=== PATIENT | female | born 1960 | race American Indian/Alaskan Native ===

== ENCOUNTER 2019-04-10 08:51 | Inpatient (IN) | payer MEDICAID ==
[2019-04-10] MEDS ORDERED: SODIUM CHLORIDE 0.9% 1000 ML 1,000 ML IV ONE (09:14)
--- NOTE | 2019-04-10 09:23 | Emergency Department Report ---
<SUKHDEEPELYSIA - Last Filed: 04/10/19 16:15> ED GI Bleed HPI - General Chief complaint: Abdominal Pain Stated complaint: BLOOD IN STOOL Time Seen by Provider: 04/10/19 09:14 - Related Data Home Medications Medication Instructions Recorded Confirmed Last Taken Acyclovir 800 mg PO BID 04/04/19 04/10/19 04/09/19 Banophen Anti-Itch 25 mg PO DAILY 04/04/19 04/10/19 04/09/19 Combivent Respimat 1 spray INHALATION Q6H 04/04/19 04/04/19 04/09/19 Famotidine 40 mg PO Q12H 04/04/19 04/04/19 04/09/19 Fluticasone Propionate 2 spray INHALATION DAILY 04/04/19 04/04/19 04/09/19 Levothyroxine 25 mcg PO DAILY 04/04/19 04/10/19 04/09/19 Loratadine 10 mg PO DAILY 04/04/19 04/10/19 04/09/19 Losartan Potassium 50 mg PO Q12H 04/04/19 04/10/19 04/09/19 Montelukast 10 mg PO QPM 04/04/19 04/10/19 04/09/19 allopurinoL 300 mg PO DAILY 04/04/19 04/04/19 04/09/19 Previous Rx's Medication Instructions Recorded Last Taken Type Apixaban [Eliquis] 10 mg PO Q12HR #60 tablet 04/07/19 04/09/19 Rx Pantoprazole [Protonix TAB] 40 mg PO QDAY #30 tablet 04/07/19 04/09/19 Rx Allergies Allergy/AdvReac Type Severity Reaction Status Date / Time No Known Allergies Allergy Verified 04/04/19 01:28 ED Past Medical Hx - Medications Home Medications: Home Medications Medication Instructions Recorded Confirmed Last Taken Type Acyclovir 800 mg PO BID 04/04/19 04/10/19 04/09/19 History Banophen Anti-Itch 25 mg PO DAILY 04/04/19 04/10/19 04/09/19 History Combivent Respimat 1 spray INHALATION Q6H 04/04/19 04/04/19 04/09/19 History Famotidine 40 mg PO Q12H 04/04/19 04/04/19 04/09/19 History Fluticasone Propionate 2 spray INHALATION DAILY 04/04/19 04/04/19 04/09/19 History Levothyroxine 25 mcg PO DAILY 04/04/19 04/10/19 04/09/19 History Loratadine 10 mg PO DAILY 04/04/19 04/10/19 04/09/19 History Losartan Potassium 50 mg PO Q12H 04/04/19 04/10/19 04/09/19 History Montelukast 10 mg PO QPM 04/04/19 04/10/19 04/09/19 History allopurinoL 300 mg PO DAILY 04/04/19 04/04/19 04/09/19 History Apixaban [Eliquis] 10 mg PO Q12HR #60 tablet 04/07/19 04/10/19 04/09/19 Rx Pantoprazole [Protonix TAB] 40 mg PO QDAY #30 tablet 04/07/19 04/10/19 04/09/19 Rx ED Medical Decision Making - Lab Data Result diagrams: 04/10/19 09:58 04/10/19 09:58 - Medical Decision Making I reviewed the results of CT abdomen and pelvis: No CTA evidence for active GI bleed, moderate pericardial effusion, extensive vascular calcification non- aneurysmal abdominal aorta region, no acute inflammatory intra-abdominal process ED Disposition Clinical Impression: Abdominal pain, GI (gastrointestinal hemorrhage), Acute anemia Disposition: DC-[id number] OP ADMIT IP TO THIS HOSP Is pt being admited?: Yes Does the pt Need Aspirin: No Condition: Stable <ANNY CAMARA - Last Filed: 04/11/19 09:19> ED GI Bleed HPI - General Source: patient, EMS Mode of arrival: Stretcher Limitations: No Limitations - History of Present Illness Initial comments: Patient is 58 years old female with remote history of neck cancer. Patient presented to the ER complaining of rectal bleeding started this morning. Patient was admitted to the hospital and discharged last week for right upper extremity DVT and also anemia for which patient received blood transfusion. Patient was seen by Dr. Julian Mcghee, gastroenterology and patient had a colonoscopy with no significant finding. Patient also found to have significant lymphadenopathy that is occluding the subclavian, internal jugular. Patient was discharged on Elliquis. complaint: gross hematochezia -: This morning Location: LLQ Radiation: none Quality: cramping Consistency: intermittent Context: history of GI bleed ED Review of Systems ROS: Stated complaint: BLOOD IN STOOL Other details as noted in HPI Comment: All other systems reviewed and negative Constitutional: denies: chills, fever Respiratory: denies: cough, shortness of breath Cardiovascular: denies: chest pain Gastrointestinal: abdominal pain, hematochezia. denies: nausea, vomiting, diarrhea, constipation, hematemesis, melena Genitourinary: denies: urgency, dysuria Musculoskeletal: denies: back pain Neurological: denies: headache, weakness, numbness, paresthesias, confusion, abnormal gait ED Past Medical Hx - Past Medical History Previous Medical History?: Yes Hx Hypertension: Yes Hx CVA: Yes Hx Diabetes: Yes Hx Asthma: Yes Additional medical history: Gout - Surgical History Past Surgical History?: Yes Additional Surgical History: Oral Surgery, hx of feeding tube - Social History Smoking Status: Current Some Day Smoker ED Physical Exam - General Limitations: No Limitations General appearance: alert, in no apparent distress - Head Head exam: Present: atraumatic, normocephalic, normal inspection - Eye Eye exam: Present: normal appearance - ENT ENT exam: Present: normal exam, normal orophraynx, mucous membranes moist - Neck Neck exam: Present: normal inspection, full ROM. Absent: tenderness, meningismus, lymphadenopathy, thyromegaly - Respiratory Respiratory exam: Present: normal lung sounds bilaterally - Cardiovascular Cardiovascular Exam: Present: regular rate, normal rhythm, normal heart sounds - GI/Abdominal GI/Abdominal exam: Present: soft, normal bowel sounds. Absent: distended, tenderness, guarding, rebound, rigid, organomegaly, mass, bruit, pulsatile mass, hernia - Rectal Rectal exam: Present: normal inspection, normal rectal tone, heme (+) stool. Absent: hemorrhoids, mass, tenderness - Extremities Exam Extremities exam: Present: normal inspection, full ROM, normal capillary refill. Absent: tenderness, pedal edema, calf tenderness - Back Exam Back exam: Present: normal inspection, full ROM. Absent: CVA tenderness (R), CVA tenderness (L) - Neurological Exam Neurological exam: Present: alert, oriented X3, CN II-XII intact, normal gait, reflexes normal - Skin Skin exam: Present: warm, intact, normal color ED Course Vital Signs 04/10/19 04/10/19 04/10/19 09:03 09:12 09:20 Temperature 97.7 F Pulse Rate 118 H 120 H Respiratory 23 23 Rate Blood Pressure 106/53 100/55 100/55 Blood Pressure [Right] O2 Sat by Pulse 96 Oximetry 04/10/19 04/10/19 04/10/19 10:00 10:40 11:00 Temperature Pulse Rate 109 H 108 H 108 H Respiratory 25 H 27 H 25 H Rate Blood Pressure 100/55 105/48 109/52 Blood Pressure [Right] O2 Sat by Pulse Oximetry 04/10/19 04/10/19 04/10/19 11:40 12:00 12:20 Temperature Pulse Rate 109 H 107 H 110 H Respiratory 24 22 21 Rate Blood Pressure 151/74 134/65 102/65 Blood Pressure [Right] O2 Sat by Pulse Oximetry 04/10/19 04/10/19 04/10/19 12:40 13:00 13:15 Temperature 98.8 F Pulse Rate 109 H 108 H 109 H Respiratory 22 18 23 Rate Blood Pressure 133/55 114/67 112/68 Blood Pressure [Right] O2 Sat by Pulse 94 Oximetry 04/10/19 04/10/19 04/10/19 13:30 13:32 13:45 Temperature 98.7 F 98.6 F Pulse Rate 108 H 110 H Respiratory 26 H 29 H Rate Blood Pressure 121/73 136/80 Blood Pressure [Right] O2 Sat by Pulse 99 99 100 Oximetry 04/10/19 04/10/19 04/10/19 14:00 15:35 16:00 Temperature 98.7 F Pulse Rate 106 H 103 H 102 H Respiratory 21 15 20 Rate Blood Pressure 118/67 136/80 163/76 Blood Pressure [Right] O2 Sat by Pulse 97 Oximetry 04/10/19 04/10/19 04/10/19 16:30 16:40 17:00 Temperature Pulse Rate 100 H 102 H 100 H Respiratory 21 23 16 Rate Blood Pressure 155/80 155/80 165/84 Blood Pressure [Right] O2 Sat by Pulse Oximetry 04/10/19 04/10/19 04/10/19 17:20 17:40 18:00 Temperature Pulse Rate 101 H 102 H 100 H Respiratory 24 22 19 Rate Blood Pressure 170/78 153/75 153/71 Blood Pressure [Right] O2 Sat by Pulse Oximetry 04/10/19 04/10/19 04/10/19 18:20 18:25 18:26 Temperature 97.9 F Pulse Rate 100 H 99 H 100 H Respiratory 24 16 17 Rate Blood Pressure 152/79 152/79 152/79 Blood Pressure [Right] O2 Sat by Pulse 100 Oximetry 04/10/19 04/10/19 04/10/19 18:40 19:00 19:10 Temperature 98.6 F 98.6 F Pulse Rate 102 H 101 H 96 H Respiratory 21 17 21 Rate Blood Pressure 130/65 128/70 149/76 Blood Pressure [Right] O2 Sat by Pulse 100 100 Oximetry 04/10/19 04/10/19 04/10/19 19:20 19:40 20:00 Temperature 98.6 F Pulse Rate 100 H 98 H 95 H Respiratory 21 19 12 Rate Blood Pressure 150/88 149/76 160/84 Blood Pressure [Right] O2 Sat by Pulse 100 Oximetry 04/10/19 04/10/19 04/10/19 20:10 20:20 20:40 Temperature 98.6 F Pulse Rate 96 H 96 H 96 H Respiratory 16 21 18 Rate Blood Pressure 149/83 160/84 161/83 Blood Pressure [Right] O2 Sat by Pulse 100 Oximetry 04/10/19 04/10/19 04/10/19 21:00 21:20 21:40 Temperature Pulse Rate 100 H 102 H 101 H Respiratory 27 H 25 H 25 H Rate Blood Pressure 167/80 178/82 149/73 Blood Pressure [Right] O2 Sat by Pulse Oximetry 04/10/19 04/10/19 04/10/19 22:00 22:20 22:40 Temperature Pulse Rate 100 H 97 H 95 H Respiratory 27 H 18 19 Rate Blood Pressure 159/75 146/75 152/77 Blood Pressure [Right] O2 Sat by Pulse Oximetry 04/10/19 04/10/19 04/10/19 22:45 23:00 23:20 Temperature Pulse Rate 96 H 94 H 95 H Respiratory 27 H 22 Rate Blood Pressure 149/83 171/82 158/78 Blood Pressure [Right] O2 Sat by Pulse Oximetry 04/10/19 04/11/19 04/11/19 23:40 00:00 00:20 Temperature Pulse Rate 93 H 88 89 Respiratory 21 18 18 Rate Blood Pressure 155/76 145/62 145/62 Blood Pressure [Right] O2 Sat by Pulse Oximetry 04/11/19 04/11/19 04/11/19 00:40 01:00 01:20 Temperature Pulse Rate 89 91 H 87 Respiratory 22 23 18 Rate Blood Pressure 145/62 164/79 164/79 Blood Pressure [Right] O2 Sat by Pulse Oximetry 04/11/19 04/11/19 04/11/19 01:40 02:00 02:20 Temperature Pulse Rate 85 88 83 Respiratory 20 20 26 H Rate Blood Pressure 164/79 143/64 143/64 Blood Pressure [Right] O2 Sat by Pulse Oximetry 04/11/19 04/11/19 04/11/19 02:40 03:00 03:20 Temperature Pulse Rate 91 H 88 86 Respiratory 23 21 20 Rate Blood Pressure 143/64 148/74 148/74 Blood Pressure [Right] O2 Sat by Pulse Oximetry 04/11/19 04/11/19 04/11/19 03:40 04:00 04:20 Temperature Pulse Rate 88 86 87 Respiratory 21 19 15 Rate Blood Pressure 148/74 136/68 136/68 Blood Pressure [Right] O2 Sat by Pulse Oximetry 04/11/19 04/11/19 04/11/19 04:40 05:00 05:20 Temperature Pulse Rate 85 85 83 Respiratory 18 23 23 Rate Blood Pressure 136/68 126/75 126/75 Blood Pressure [Right] O2 Sat by Pulse Oximetry 04/11/19 04/11/19 04/11/19 05:40 06:00 06:20 Temperature Pulse Rate 84 86 88 Respiratory 22 14 18 Rate Blood Pressure 126/75 136/70 136/70 Blood Pressure [Right] O2 Sat by Pulse Oximetry 04/11/19 07:42 Temperature 98.2 F Pulse Rate 87 Respiratory 22 Rate Blood Pressure Blood Pressure 162/80 [Right] O2 Sat by Pulse 100 Oximetry ED Medical Decision Making - Lab Data Result diagrams: 04/11/19 04:14 04/11/19 04:14 - Radiology Data Radiology results: report reviewed - Medical Decision Making Patient is 58 years old female with remote history of neck cancer. Patient presented to the ER complaining of rectal bleeding started this morning. Patient was admitted to the hospital and discharged last week for right upper extremity DVT and also anemia for which patient received blood transfusion. Patient was seen by Dr. Julian Mcghee, gastroenterology and patient had a colonoscopy with no significant finding. Patient also found to have significant lymphadenopathy that is occluding the subclavian, internal jugular. Patient was discharged on Elliquis. Patient found to have a hemoglobin of 6.9. Patient transfused one units of PRBC. Patient also found to have a white blood cells of 21,[address] abdomen and pelvis is pending. I discussed the patient with Dr. Schroeder he agreed to admit the patient to medical service for further management. Critical Care Time: Yes Critical care time in (mins) excluding proc time.: 30 Critical care attestation.: If time is entered above; I have spent that time in minutes in the direct care of this critically ill patient, excluding procedure time. ED Disposition Is pt being admited?: Yes
[2019-04-10 10:13] LABS: Hematocrit 21.3 % (30.3-42.9); Hemoglobin 6.9 gm/dl (10.1-14.3); Mean Corpuscular HGB Conc 32 % (30-34); Mean Corpuscular Volume 79 fl (79-97); Platelet Count 286 K/mm3 (140-440); Red Blood Count 2.69 M/mm3 (3.65-5.03)
[2019-04-10 10:14] LABS: Red Cell Distribution Width 26.6 % (13.2-15.2)
[2019-04-10 10:21] LABS: INR 1.53 (0.87-1.13)
[2019-04-10 10:22] LABS: Partial Thromboplastin Time 34.9 Sec. (24.2-36.6)
[2019-04-10 10:23] LABS: Alanine Aminotransferase 9 units/L (7-56); Albumin 2.9 g/dL (3.9-5); BUN/Creatinine Ratio 34; Blood Urea Nitrogen 31 mg/dL (7-17); Calcium 8.5 mg/dL (8.4-10.2); Hemolysis Index 4
[2019-04-10 10:28] LABS: Bilirubin,Direct < 0.2 mg/dL (0-0.2)
[2019-04-10] MEDS ORDERED: PIPERACILLIN/TAZOBACTAM 3.375 3.375 GM/50 ML BAG IV ONE (10:39)
[2019-04-10 10:48] LABS: Anisocytosis 2+; Band Neutrophils # (Manual) 1.1 K/mm3; Eosinophils % (Manual) 0 % (0.0-4.3); Hypochromasia 1+; Platelet Estimate Consistent w Auto; Total Cells Counted 100
[2019-04-10] MEDS ORDERED: SODIUM CHLORIDE 0.9% 500 ML 500 ML IV ONE (11:07)
--- NOTE | 2019-04-10 15:01 | History and Physical Report ---
History of Present Illness Chief complaint: I have blood in my stool History of present illness: 58 yo AA woman with tobacco dependency, hypothyroidism, hypertension, head and neck cancer s/p removal/chemo/xrt presents to ED for evaluation. Patient states that she has experienced multiple episodes of rectal bleeding over the past 1 day with large volume bloody bowel movement with blood clots this morning. EMS was notified and upon arrival the patient was found to be in distress and subsequently transported to [facility] for further care and evaluation. Patient seen and evaluated in the emergency department. Lab and imaging studies reviewed. Patient found to be Hemoccult positive with lower GI bleed. CBC revealed a hemoglobin of 6.9. Patient also found to have concomitant evidence of sepsis, symptomatic anemia, and severe malnutrition. Patient admitted to [facility] for medical stabilization due to high risk for decompensation. Patient initiated on [place] packed red blood cell transfusion, and PPI therapy.. Patient also initiated on sepsis protocol and treated with IV antibiotic therapy and IV fluid resuscitation therapy. CT abdomen and pelvis with contrast is pending at time of admission. Patient denies fever, chills, chest pain, palpitations, productive cough, ingestion of food/water from new or different sources. Prior admission on 04/04/2019 reviewed. All listed medication reconciled at time of ad mission. GI team consulted in ED. Past History Past Medical History: cancer, hypertension, hypothyroidism, other (See HPI) Past Surgical History: Other (Head and neck surgery) Social history: single Family history: hypertension Medications and Allergies Allergies Allergy/AdvReac Type Severity Reaction Status Date / Time No Known Allergies Allergy Verified 04/04/19 01:28 Home Medications Medication Instructions Recorded Confirmed Last Taken Type Acyclovir 800 mg PO BID 04/04/19 04/10/19 04/09/19 History Banophen Anti-Itch 25 mg PO DAILY 04/04/19 04/10/19 04/09/19 History Combivent Respimat 1 spray INHALATION Q6H 04/04/19 04/04/19 04/09/19 History Famotidine 40 mg PO Q12H 04/04/19 04/04/19 04/09/19 History Fluticasone Propionate 2 spray INHALATION DAILY 04/04/19 04/04/19 04/09/19 History Levothyroxine 25 mcg PO DAILY 04/04/19 04/10/19 04/09/19 History Loratadine 10 mg PO DAILY 04/04/19 04/10/19 04/09/19 History Losartan Potassium 50 mg PO Q12H 04/04/19 04/10/19 04/09/19 History Montelukast 10 mg PO QPM 04/04/19 04/10/19 04/09/19 History allopurinoL 300 mg PO DAILY 04/04/19 04/04/19 04/09/19 History Apixaban [Eliquis] 10 mg PO Q12HR #60 tablet 04/07/19 04/10/19 04/09/19 Rx Pantoprazole [Protonix TAB] 40 mg PO QDAY #30 tablet 04/07/19 04/10/19 04/09/19 Rx Review of Systems Constitutional: no weight loss, no weight gain, no fever, no chills Ears, nose, mouth and throat: no ear pain, no tinnitis, no nose pain, no nasal discharge Breasts: no change in shape, no swelling, no mass Cardiovascular: no chest pain, no palpitations, no rapid/irregular heart beat, no edema, no syncope Respiratory: no cough, no excessive sputum, no hemoptysis, no dyspnea on exertion Gastrointestinal: BRBPR, no abdominal pain, no nausea, no vomiting, no change in bowel habits, no loss of appetite, no heartburn Genitourinary Female: no pelvic pain, no flank pain, no dysuria, no urinary frequency, no urgency Rectal: bleeding, no pain, no incontinence Musculoskeletal: no neck stiffness, no neck pain, no low back pain, no leg numbness/tingling, no redness of joints Integumentary: no rash, no pruritis, no redness, no sores, no wounds Neurological: no transient paralysis, no weakness, no tingling, no seizures, no tremors, no lack of coordination Psychiatric: no memory loss, no change in sleep habits, no insomnia, no hypersomnia Endocrine: no cold intolerance, no heat intolerance, no polyphagia, no polyuria, no nocturia, no excessive sweating, no flushing Hematologic/Lymphatic: no easy bruising, no easy bleeding, no lymphedema Allergic/Immunologic: no persistent infections, no anaphylaxis Exam - Constitutional Vitals: Temp Pulse Resp BP Pulse Ox 98.7 F 108 H 19 118/67 97 04/10/19 14:00 04/10/19 14:00 04/10/19 14:00 04/10/19 14:00 04/10/19 14:00 General appearance: Present: mild distress, cachectic - EENT Eyes: Present: PERRL (Conjunctival pallor) ENT: hearing intact, clear oral mucosa - Neck Neck: Present: supple, normal ROM - Respiratory Respiratory effort: normal Respiratory: bilateral: CTA - Cardiovascular Heart Sounds: Present: S1 & S2. Absent: rub, click - Extremities Extremities: pulses symmetrical, No edema Peripheral Pulses: within normal limits - Abdominal General gastrointestinal: Present: soft, non-tender, non-distended, normal bowel sounds Female genitourinary: Present: normal - Integumentary Integumentary: Present: clear, warm, dry - Musculoskeletal Musculoskeletal: generalized weakness - Psychiatric Psychiatric: appropriate mood/affect, intact judgment & insight - Neurologic Neurologic: CNII-XII intact, moves all extremities Results - Labs CBC & Chem 7: 04/10/19 09:58 04/10/19 09:58 Labs: Abnormal lab results 04/10/19 04/10/19 04/10/19 Range/Units 09:58 09:58 09:58 WBC 21.8 H (4.5-11.0) K/mm3 RBC 2.69 L (3.65-5.03) M/mm3 Hgb 6.9 L (10.1-14.3) gm/dl Hct 21.3 L (30.3-42.9) % MCH 26 L (28-32) pg RDW 26.6 H (13.2-15.2) % Seg Neuts % (Manual) 90.0 H (40.0-70.0) % Lymphocytes % (Manual) 1.0 L (13.4-35.0) % Seg Neutrophils # Man 19.6 H (1.8-7.7) K/mm3 Lymphocytes # (Manual) 0.2 L (1.2-5.4) K/mm3 Basophils # (Manual) 0.2 H (0.0-0.1) K/mm3 PT 18.6 H (12.2-14.9) Sec. INR 1.53 H (0.87-1.13) Sodium 134 L (137-145) mmol/L Chloride 96.5 L (98-107) mmol/L BUN 31 H (7-17) mg/dL Albumin 2.9 L (3.9-5) g/dL Crossmatch 04/10/19 Range/Units 09:58 WBC (4.5-11.0) K/mm3 RBC (3.65-5.03) M/mm3 Hgb (10.1-14.3) gm/dl Hct (30.3-42.9) % MCH (28-32) pg RDW (13.2-15.2) % Seg Neuts % (Manual) (40.0-70.0) % Lymphocytes % (Manual) (13.4-35.0) % Seg Neutrophils # Man (1.8-7.7) K/mm3 Lymphocytes # (Manual) (1.2-5.4) K/mm3 Basophils # (Manual) (0.0-0.1) K/mm3 PT (12.2-14.9) Sec. INR (0.87-1.13) Sodium (137-145) mmol/L Chloride (98-107) mmol/L BUN (7-17) mg/dL Albumin (3.9-5) g/dL Crossmatch See Detail Assessment and Plan - Patient Problems (1) Sepsis Current Visit: Yes Status: Acute Plan to address problem: Sepsis protocol: CBC, CMP, chest x-ray, urinalysis, serial lactic acid level, IV antibiotic therapy, IV fluid resuscitation therapy, maintain mean arterial pressure greater than 65, monitor urine output every shift. (2) GI (gastrointestinal hemorrhage) Current Visit: Yes Status: Acute Plan to address problem: GI bleed protocol: CBC, PRBC transfusion, GI consulted, repeat CBC in a.m. Repeat blood for transfusion if patient drops hemoglobin by 2 or more grams. (3) Severe malnutrition Current Visit: Yes Status: Acute Plan to address problem: Encourage increased protein intake, dietary supplementation as tolerated. (4) Acute anemia Current Visit: Yes Status: Acute (5) Hyponatremia Current Visit: Yes Status: Acute Plan to address problem: IV fluid resuscitation therapy, BMP now, repeat BMP in a.m. (6) DVT prophylaxis Current Visit: Yes Status: Acute Plan to address problem: SCD to bilateral lower extremities while in bed, hold anticoagulation for now due to GI bleed.
[2019-04-10] MEDS ORDERED: SODIUM CHLORIDE 0.9% 500 ML 500 ML IV SCH (15:02)
[2019-04-10] MEDS ORDERED: SODIUM CHLORIDE 0.9% 1000 ML IV SOLN IV ONE (15:03)
[2019-04-10] MEDS ORDERED: ALBUTEROL 2.5 MG/3 ML NEBU IH PRN (15:10)
--- NOTE | 2019-04-10 15:13 | Cat Scan Report ---
CT ABDOMEN AND PELVIS WITH CONTRAST INDICATION: abdominal pain. TECHNIQUE: Axial CT images were obtained through the abdomen and pelvis after 100 cc Omnipaque [address] scans at this location are performed using CT dose reduction for ALARA by means of automated exposure control. COMPARISON: None available. FINDINGS: LOWER CHEST: 1.8 cm pericardial effusion along the posterior dependent aspect of the pericardial sac. LIVER: No significant abnormality. GALLBLADDER: No significant abnormality. BILE DUCTS: No significant abnormality. PANCREAS: No significant abnormality. SPLEEN: No significant abnormality. ADRENALS: No significant abnormality. RIGHT KIDNEY and URETER: No significant abnormality. LEFT KIDNEY and URETER: No significant abnormality. STOMACH and SMALL BOWEL: No significant abnormality. COLON: No significant abnormality. APPENDIX: No significant abnormality. PERITONEUM: No free fluid. No free air. No fluid collection. LYMPH NODES: No significant adenopathy. AORTA and ARTERIES: Extensive vascular calcifications nonaneurysmal abdominal aorta area and IVC and VEINS: No significant abnormality. URINARY BLADDER: No significant abnormality. REPRODUCTIVE ORGANS: No significant abnormality. ADDITIONAL FINDINGS: None. SKELETAL SYSTEM: No significant abnormality. IMPRESSION: 1. No CTA evidence for active GI bleed. 2. Moderate pericardial effusion Signer Name: Jamal Mcpherson MD Signed: 04/10/2019 3:08 PM Workstation Name: [id number]
[2019-04-10] MEDS ORDERED: NON-FORMULARY EACH (Losartan Potassium 50 MG) PO SCH (15:15)
[2019-04-10] MEDS ORDERED: FAMOTIDINE 40 MG PO SCH (15:15)
[2019-04-10] MEDS ORDERED: FAMOTIDINE 20 MG TAB ONE (15:52)
[2019-04-10] MEDS ORDERED: LOSARTAN 50 MG TAB ONE ×2 (15:52→22:39)
[2019-04-10] MEDS ORDERED: PANTOPRAZOLE 20 MG TAB PO ONE ×2 (15:56→22:38)
[2019-04-10] MEDS ORDERED: metroNIDAZOLE/NS 500 MG/100 ML 500 MG/100 ML BAG IV ONE (16:11)
[2019-04-10] MEDS: metroNIDAZOLE/NS 500 MG/100 ML 500 MG/100 ML BAG IV SCH (16:30)
[2019-04-10 16:53] LABS: Bacteria,Urine 1+ /HPF (Negative); Bilirubin,Urine NEG (Negative); Blood,Urine LG (Negative); Color,Urine Yellow (Yellow); Mucus,Urine FEW /HPF; Protein,Urine <15 mg/dL mg/dL (Negative); Urobilinogen,Urine < 2.0 mg/dL (<2.0)
[2019-04-10] MEDS ORDERED: NON-FORMULARY EACH (Montelukast 10 MG) PO SCH (18:00)
[2019-04-10] MEDS ORDERED: ACYCLOVIR 800 MG PO SCH (22:00)
[2019-04-10] MEDS: PANTOPRAZOLE 40 MG INJ IV SCH ×2 (22:45→23:06)
[2019-04-10] MEDS: MONTELUKAST 10 MG TAB PO SCH (22:45)
[2019-04-10] MEDS: LOSARTAN 50 MG TAB PO SCH (22:45)
[2019-04-10] MEDS: ACYCLOVIR 800 MG TAB PO SCH (22:45)
[2019-04-10] MEDS ORDERED: MORPHINE 4 MG/1 ML INJ IV ONE (22:54)
[2019-04-10] MEDS ORDERED: MORPHINE 2 MG/1 ML INJ ONE (23:20)
[2019-04-11] MEDS ORDERED: PANTOPRAZOLE 40 MG TAB PO ONE ×3 (01:00→22:56)
[2019-04-11] MEDS: metroNIDAZOLE/NS 500 MG/100 ML 500 MG/100 ML BAG IV SCH ×4 (01:30→15:51)
[2019-04-11 05:11] LABS: Hematocrit 29.4 % (30.3-42.9); Hemoglobin 10.1 gm/dl (10.1-14.3); Mean Corpuscular HGB Conc 34 % (30-34); Mean Corpuscular Volume 83 fl (79-97); Platelet Count 258 K/mm3 (140-440); Red Blood Count 3.53 M/mm3 (3.65-5.03)
[2019-04-11 05:23] LABS: Red Cell Distribution Width 21.7 % (13.2-15.2)
[2019-04-11 05:35] LABS: Alanine Aminotransferase 8 units/L (7-56); Albumin 2.7 g/dL (3.9-5); BUN/Creatinine Ratio 22; Blood Urea Nitrogen 13 mg/dL (7-17); Calcium 8.3 mg/dL (8.4-10.2); Hemolysis Index 1
[2019-04-11] MEDS ORDERED: metroNIDAZOLE/NS 500 MG/100 ML 500 MG/100 ML BAG IV ONE ×3 (06:06→15:43)
[2019-04-11] MEDS: LEVOTHYROXINE 25 MCG TAB PO SCH (06:26)
[2019-04-11 06:52] LABS: Anisocytosis 1+; Basophils % (Manual) 0 % (0.0-1.8); Eosinophils % (Manual) 0 % (0.0-4.3); Hypochromasia 1+; Platelet Estimate Consistent w Auto; Total Cells Counted 100
--- NOTE | 2019-04-11 09:54 | Gastroenterology Consultation ---
History of Present Illness - Reason for Consult Consult date: 04/11/19 GI bleed Requesting physician: ANNIE ALEXIS - History of Present Illness Patient is a 58 y/o female with PMH of HTN, hypothyroidism, tobacco dependency, and remote head/neck cancer (s/p removal/chemo/xrt/PEG w/ removal) on whom GI has been consulted for GI bleed. She is previously known to our service from a consult last week for evaluation of anemia due to need for anticoagulation for RUE DVT. 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 She was discharged home on 04/07/19 on Eliquis and now presents to ED with c/o rectal bleeding that began yesterday with maroon colored blood. This morning patient was resting on stretcher w/o acute distress (HD stable). Reports no further BMs or signs of bleeding overnight or this am. Denies abd pain, N/V, or hematemesis. CTA upon admission negative for active bleeding. Past History Past Medical History: other (See HPI) Past Surgical History: Other (bilateral head, neck cancer removal 2011 with chemo/xrt, tubal ligation, s/p PEG and removal) Social history: single, smoking. denies: alcohol abuse Family history: hypertension, other (an Aunt of cancer, grandmother with possible hx of colon CA, sister has DM, cva, no DVT) Medications and Allergies Allergies Allergy/AdvReac Type Severity Reaction Status Date / Time No Known Allergies Allergy Verified 04/04/19 01:28 Home Medications Medication Instructions Recorded Confirmed Last Taken Type Acyclovir 800 mg PO BID 04/04/19 04/10/19 04/09/19 History Banophen Anti-Itch 25 mg PO DAILY 04/04/19 04/10/19 04/09/19 History Combivent Respimat 1 spray INHALATION Q6H 04/04/19 04/04/19 04/09/19 History Famotidine 40 mg PO Q12H 04/04/19 04/04/19 04/09/19 History Fluticasone Propionate 2 spray INHALATION DAILY 04/04/19 04/04/19 04/09/19 History Levothyroxine 25 mcg PO DAILY 04/04/19 04/10/19 04/09/19 History Loratadine 10 mg PO DAILY 04/04/19 04/10/19 04/09/19 History Losartan Potassium 50 mg PO Q12H 04/04/19 04/10/19 04/09/19 History Montelukast 10 mg PO QPM 04/04/19 04/10/19 04/09/19 History allopurinoL 300 mg PO DAILY 04/04/19 04/04/19 04/09/19 History Apixaban [Eliquis] 10 mg PO Q12HR #60 tablet 04/07/19 04/10/19 04/09/19 Rx Pantoprazole [Protonix TAB] 40 mg PO QDAY #30 tablet 04/07/19 04/10/19 04/09/19 Rx Active Meds: Active Medications Acyclovir (Zovirax) 800 mg PO Q12HR [facility] Last Admin: 04/10/19 22:45 Dose: 800 mg Documented by: Albuterol (Proventil) 2.5 mg IH Q3HRT PRN PRN Reason: Shortness Of Breath Allopurinol (Zyloprim) 300 mg PO QDAY [facility] Cetirizine HCl (Cetirizine) 10 mg PO DAILY [facility] Diphenhydramine HCl (Benadryl) 25 mg PO QDAY [facility] Sodium Chloride (Nacl 0.9% 500 Ml) 500 mls @ 0 mls/hr IV ONCE [facility] Levofloxacin/Dextrose (Levaquin 750mg/150ml) 750 mg in 150 mls @ 100 mls/hr IV Q24H [facility]; Protocol Last Admin: 04/10/19 18:04 Dose: 100 mls/hr Documented by: Metronidazole (Flagyl 500 Mg/100 Ml) 500 mg in 100 mls @ 100 mls/hr IV Q8H [facility]; Protocol Last Admin: 04/11/19 08:30 Dose: 100 mls/hr Documented by: Potassium Chloride (Kcl 10meq/100ml) 10 meq in 100 mls @ 100 mls/hr IV Q1H [facility] Stop: 04/11/19 11:59 Levothyroxine Sodium (Synthroid) 25 mcg PO DAILY@0600 [facility] Last Admin: 04/11/19 06:26 Dose: 25 mcg Documented by: Losartan Potassium (Cozaar) 50 mg PO BID [facility] Last Admin: 04/10/19 22:45 Dose: 50 mg Documented by: Montelukast Sodium (Singulair) 10 mg PO QHS [facility] Last Admin: 04/10/19 22:45 Dose: 10 mg Documented by: Pantoprazole Sodium (Protonix) 40 mg IV BID [facility] Last Admin: 04/10/19 23:06 Dose: Not Given Documented by: Sodium Chloride (Sodium Chloride Flush Syringe 10 Ml) 10 ml IV BID [facility] Last Admin: 04/10/19 22:44 Dose: 10 ml Documented by: Sodium Chloride (Sodium Chloride Flush Syringe 10 Ml) 10 ml IV PRN PRN PRN Reason: LINE FLUSH medications reviewed/updated as required Review of Systems - Review of Systems All systems: negative Gastrointestinal: other (rectal bleeding (maroon)), no abdominal pain, no nausea, no vomiting Exam - Constitutional Vital Signs: Temp Pulse Resp BP Pulse Ox 98.2 F 87 22 162/80 100 04/11/19 07:42 04/11/19 07:42 04/11/19 07:42 04/11/19 07:42 04/11/19 07:42 General appearance: no acute distress, other (thin appearing) - EENT Eyes: PERRL, EOM intact ENT: hearing intact - Respiratory Respiratory effort: normal Respiratory: bilateral: diminished - Cardiovascular Rhythm: regular - Gastrointestinal General gastrointestinal: Present: soft, non-tender, non-distended, normal bowel sounds - Integumentary Integumentary: Present: warm, dry - Neurologic Neurological: alert and oriented x3 - Labs CBC & Chem 7: 04/11/19 04:14 04/11/19 04:14 Lab Results: Laboratory Results - last 24 hr 04/10/19 04/10/19 04/10/19 09:58 09:58 09:58 WBC 21.8 H RBC 2.69 L Hgb 6.9 L Hct 21.3 L MCV 79 MCH 26 L MCHC 32 RDW 26.6 H Plt Count 286 Add Manual Diff Complete Total Counted 100 Seg Neuts % (Manual) 90.0 H Band Neutrophils % 5.0 Lymphocytes % (Manual) 1.0 L Reactive Lymphs % (Man) 0 Monocytes % (Manual) 3.0 Eosinophils % (Manual) 0 Basophils % (Manual) 1.0 Metamyelocytes % 0 Myelocytes % 0 Promyelocytes % 0 Blast Cells % 0 Nucleated RBC % Not Reportable Seg Neutrophils # Man 19.6 H Band Neutrophils # 1.1 Lymphocytes # (Manual) 0.2 L Abs React Lymphs (Man) 0.0 Monocytes # (Manual) 0.7 Eosinophils # (Manual) 0.0 Basophils # (Manual) 0.2 H Metamyelocytes # 0.0 Myelocytes # 0.0 Promyelocytes # 0.0 Blast Cells # 0.0 WBC Morphology Not Reportable Hypersegmented Neuts Not Reportable Hyposegmented Neuts Not Reportable Hypogranular Neuts Not Reportable Smudge Cells Not Reportable Toxic Granulation Not Reportable Toxic Vacuolation Not Reportable Dohle Bodies Not Reportable Pelger-Huet Anomaly Not Reportable Deangelo Rods Not Reportable Platelet Estimate Consistent w auto Clumped Platelets Not Reportable Plt Clumps, EDTA Not Reportable Large Platelets Not Reportable Giant Platelets Not Reportable Platelet Satelliting Not Reportable Plt Morphology Comment Not Reportable RBC Morphology Not Reportable Dimorphic RBCs Not Reportable Polychromasia Not Reportable Hypochromasia 1+ Poikilocytosis Not Reportable Anisocytosis 2+ Microcytosis 1+ Macrocytosis Not Reportable Spherocytes Not Reportable Pappenheimer Bodies Not Reportable Sickle Cells Not Reportable Target Cells Not Reportable Tear Drop Cells Not Reportable Ovalocytes Not Reportable Helmet Cells Not Reportable [place] Bodies Not Reportable [place] Rings Not Reportable [place] Cells Not Reportable Bite Cells Not Reportable Crenated Cell Not Reportable Elliptocytes Not Reportable Acanthocytes (Spur) Not Reportable Rouleaux Not Reportable Hemoglobin C Crystals Not Reportable Schistocytes Not Reportable Malaria parasites Not Reportable Clark Bodies Not Reportable Hem Pathologist Commnt No PT 18.6 H INR 1.53 H APTT 34.9 Sodium 134 L Potassium 3.7 Chloride 96.5 L Carbon Dioxide 22 Anion Gap 19 BUN 31 H Creatinine 0.9 Estimated GFR > 60 BUN/Creatinine Ratio 34 Glucose 86 Lactic Acid Calcium 8.5 Total Bilirubin 0.20 Direct Bilirubin < 0.2 Indirect Bilirubin 0.0 AST 21 ALT 9 Alkaline Phosphatase 95 Total Protein 6.4 Albumin 2.9 L Albumin/Globulin Ratio 0.8 Urine Color Urine Turbidity Urine pH Ur Specific [place] Urine Protein Urine Glucose (UA) Urine Ketones Urine Blood Urine Nitrite Urine Bilirubin Urine Urobilinogen Ur Leukocyte Esterase Urine WBC (Auto) Urine RBC (Auto) U Epithel Cells (Auto) Urine Bacteria (Auto) Urine Mucus Blood Type Antibody Screen Crossmatch 04/10/19 04/10/19 04/10/19 09:58 15:21 15:36 WBC RBC Hgb Hct MCV MCH MCHC RDW Plt Count Add Manual Diff Total Counted Seg Neuts % (Manual) Band Neutrophils % Lymphocytes % (Manual) Reactive Lymphs % (Man) Monocytes % (Manual) Eosinophils % (Manual) Basophils % (Manual) Metamyelocytes % Myelocytes % Promyelocytes % Blast Cells % Nucleated RBC % Seg Neutrophils # Man Band Neutrophils # Lymphocytes # (Manual) Abs React Lymphs (Man) Monocytes # (Manual) Eosinophils # (Manual) Basophils # (Manual) Metamyelocytes # Myelocytes # Promyelocytes # Blast Cells # WBC Morphology Hypersegmented Neuts Hyposegmented Neuts Hypogranular Neuts Smudge Cells Toxic Granulation Toxic Vacuolation Dohle Bodies Pelger-Huet Anomaly Deangelo Rods Platelet Estimate Clumped Platelets Plt Clumps, EDTA Large Platelets Giant Platelets Platelet Satelliting Plt Morphology Comment RBC Morphology Dimorphic RBCs Polychromasia Hypochromasia Poikilocytosis Anisocytosis Microcytosis Macrocytosis Spherocytes Pappenheimer Bodies Sickle Cells Target Cells Tear Drop Cells Ovalocytes Helmet Cells Mahoney-[place] Bodies [place] Rings Hilda Cells Bite Cells Crenated Cell Elliptocytes Acanthocytes (Spur) Rouleaux Hemoglobin C Crystals Schistocytes Malaria parasites Clark Bodies Hem Pathologist Commnt PT INR APTT Sodium Potassium Chloride Carbon Dioxide Anion Gap BUN Creatinine Estimated GFR BUN/Creatinine Ratio Glucose Lactic Acid 1.60 Calcium Total Bilirubin Direct Bilirubin Indirect Bilirubin AST ALT Alkaline Phosphatase Total Protein Albumin Albumin/Globulin Ratio Urine Color Yellow Urine Turbidity Cloudy Urine pH 5.0 Ur Specific [place] 1.035 H Urine Protein <15 mg/dl Urine Glucose (UA) Neg Urine Ketones Neg Urine Blood Lg Urine Nitrite Neg Urine Bilirubin Neg Urine Urobilinogen < 2.0 Ur Leukocyte Esterase Lg Urine WBC (Auto) 55.0 H Urine RBC (Auto) 4.0 U Epithel Cells (Auto) 31.0 H Urine Bacteria (Auto) 1+ Urine Mucus Few Blood Type O POSITIVE Antibody Screen Negative Crossmatch See Detail 04/10/19 04/10/19 04/11/19 19:38 21:32 04:14 WBC 17.5 H RBC 3.53 L Hgb 10.1 D Hct 29.4 L D MCV 83 MCH 29 MCHC 34 RDW 21.7 H Plt Count 258 Add Manual Diff Complete Total Counted 100 Seg Neuts % (Manual) 82.0 H Band Neutrophils % 0 Lymphocytes % (Manual) 9.0 L Reactive Lymphs % (Man) 0 Monocytes % (Manual) 9.0 H Eosinophils % (Manual) 0 Basophils % (Manual) 0 Metamyelocytes % 0 Myelocytes % 0 Promyelocytes % 0 Blast Cells % 0 Nucleated RBC % Not Reportable Seg Neutrophils # Man 14.4 H Band Neutrophils # 0.0 Lymphocytes # (Manual) 1.6 Abs React Lymphs (Man) 0.0 Monocytes # (Manual) 1.6 H Eosinophils # (Manual) 0.0 Basophils # (Manual) 0.0 Metamyelocytes # 0.0 Myelocytes # 0.0 Promyelocytes # 0.0 Blast Cells # 0.0 WBC Morphology Not Reportable Hypersegmented Neuts Not Reportable Hyposegmented Neuts Not Reportable Hypogranular Neuts Not Reportable Smudge Cells Not Reportable Toxic Granulation Not Reportable Toxic Vacuolation Not Reportable Dohle Bodies Not Reportable Pelger-Huet Anomaly Not Reportable Deangelo Rods Not Reportable Platelet Estimate Consistent w auto Clumped Platelets Not Reportable Plt Clumps, EDTA Not Reportable Large Platelets Not Reportable Giant Platelets Not Reportable Platelet Satelliting Not Reportable Plt Morphology Comment Not Reportable RBC Morphology Not Reportable Dimorphic RBCs Not Reportable Polychromasia Not Reportable Hypochromasia 1+ Poikilocytosis Not Reportable Anisocytosis 1+ Microcytosis 1+ Macrocytosis Not Reportable Spherocytes Not Reportable Pappenheimer Bodies Not Reportable Sickle Cells Not Reportable Target Cells Not Reportable Tear Drop Cells Not Reportable Ovalocytes Not Reportable Helmet Cells Not Reportable Mahoney-[place] Bodies Not Reportable [place] Rings Not Reportable [place] Cells Not Reportable Bite Cells Not Reportable Crenated Cell Not Reportable Elliptocytes Not Reportable Acanthocytes (Spur) Not Reportable Rouleaux Not Reportable Hemoglobin C Crystals Not Reportable Schistocytes Not Reportable Malaria parasites Not Reportable Clark Bodies Not Reportable Hem Pathologist Commnt No PT INR APTT Sodium Potassium Chloride Carbon Dioxide Anion Gap BUN Creatinine Estimated GFR BUN/Creatinine Ratio Glucose Lactic Acid 0.90 0.90 Calcium Total Bilirubin Direct Bilirubin Indirect Bilirubin AST ALT Alkaline Phosphatase Total Protein Albumin Albumin/Globulin Ratio Urine Color Urine Turbidity Urine pH Ur Specific [place] Urine Protein Urine Glucose (UA) Urine Ketones Urine Blood Urine Nitrite Urine Bilirubin Urine Urobilinogen Ur Leukocyte Esterase Urine WBC (Auto) Urine RBC (Auto) U Epithel Cells (Auto) Urine Bacteria (Auto) Urine Mucus Blood Type Antibody Screen Crossmatch 04/11/19 04:14 WBC RBC Hgb Hct MCV MCH MCHC RDW Plt Count Add Manual Diff Total Counted Seg Neuts % (Manual) Band Neutrophils % Lymphocytes % (Manual) Reactive Lymphs % (Man) Monocytes % (Manual) Eosinophils % (Manual) Basophils % (Manual) Metamyelocytes % Myelocytes % Promyelocytes % Blast Cells % Nucleated RBC % Seg Neutrophils # Man Band Neutrophils # Lymphocytes # (Manual) Abs React Lymphs (Man) Monocytes # (Manual) Eosinophils # (Manual) Basophils # (Manual) Metamyelocytes # Myelocytes # Promyelocytes # Blast Cells # WBC Morphology Hypersegmented Neuts Hyposegmented Neuts Hypogranular Neuts Smudge Cells Toxic Granulation Toxic Vacuolation Dohle Bodies Pelger-Huet Anomaly Deangelo Rods Platelet Estimate Clumped Platelets Plt Clumps, EDTA Large Platelets Giant Platelets Platelet Satelliting Plt Morphology Comment RBC Morphology Dimorphic RBCs Polychromasia Hypochromasia Poikilocytosis Anisocytosis Microcytosis Macrocytosis Spherocytes Pappenheimer Bodies Sickle Cells Target Cells Tear Drop Cells Ovalocytes Helmet Cells Mahoney-[place] Bodies [place] Rings [place] Cells Bite Cells Crenated Cell Elliptocytes Acanthocytes (Spur) Rouleaux Hemoglobin C Crystals Schistocytes Malaria parasites Clark Bodies Hem Pathologist Commnt PT INR APTT Sodium 135 L Potassium 3.3 L Chloride 99.9 Carbon Dioxide 20 L Anion Gap 18 BUN 13 Creatinine 0.6 L Estimated GFR > 60 BUN/Creatinine Ratio 22 Glucose 79 Lactic Acid Calcium 8.3 L Total Bilirubin 0.60 Direct Bilirubin Indirect Bilirubin AST 19 ALT 8 Alkaline Phosphatase 86 Total Protein 6.3 Albumin 2.7 L Albumin/Globulin Ratio 0.8 Urine Color Urine Turbidity Urine pH Ur Specific [place] Urine Protein Urine Glucose (UA) Urine Ketones Urine Blood Urine Nitrite Urine Bilirubin Urine Urobilinogen Ur Leukocyte Esterase Urine WBC (Auto) Urine RBC (Auto) U Epithel Cells (Auto) Urine Bacteria (Auto) Urine Mucus Blood Type Antibody Screen Crossmatch Assessment and Plan 1.GI bleed 2.acute on chronic anemia 3.RUE DVT (Eliquis on hold) 4.H/o head/neck cancer (s/p removal/chemo/xrt/PEG w/ removal)-CT chest 04/04/19 with findings c/w metastatic process vs lymphoma -plt WNL, INR 1.53 -CTA abd/pelvis negative for active bleeding -H/H 10.1/29.4- s/p 3 units PRBCs (H/H 6.9/21.3 on admission) -continue to monitor H/H and transfuse as needed -currently HD stable -patient reports acute onset rectal bleeding with maroon blood yesterday; no active signs of bleeding this am; no hematemesis or abd pain -s/p EGD/colonoscopy 04/06/19 that showed two medium sized non-bleeding AVMs in the duodenal bulb and internal hemorrhoids -etiology-GI bleed likely 2/2 AVMs; anemia likely multifactorial with AVMs + metastatic process -will schedule for push enteroscopy tomorrow once Eliquis has been held x 48 hrs for further evaluation and possible tx with APC -okay for diet today then NPO after MN -continue PPI and supportive care -will follow
[2019-04-11] MEDS ORDERED: PANTOPRAZOLE 40 MG INJ IV ONE (09:58)
[2019-04-11] MEDS ORDERED: LOSARTAN 50 MG TAB ONE (09:58)
[2019-04-11] MEDS ORDERED: diphenhydrAMINE 25 MG CAP PO ONE (09:58)
[2019-04-11] MEDS ORDERED: NON-FORMULARY EACH (Allopurinol 300 MG) PO SCH (10:00)
[2019-04-11] MEDS ORDERED: POTASSIUM CHLORIDE 10 MEQ 20 MEQ/200 ML BAG IV ONE (10:00)
[2019-04-11] MEDS ORDERED: PANTOPRAZOLE 40 MG TAB PO SCH (10:00)
[2019-04-11] MEDS ORDERED: [UNRECOGNIZED DRUG - OTHER] PO SCH (10:00)
[2019-04-11] MEDS ORDERED: LEVOTHYROXINE 25 MCG PO SCH (10:00)
[2019-04-11] MEDS ORDERED: NON-FORMULARY EACH (Loratadine 10 MG) PO SCH (10:00)
[2019-04-11] MEDS: LOSARTAN 50 MG TAB PO SCH (10:10)
[2019-04-11] MEDS: ACYCLOVIR 800 MG TAB PO SCH (10:10)
[2019-04-11] MEDS: allopurinoL 300 MG TAB PO SCH (10:10)
[2019-04-11] MEDS: POTASSIUM CHLORIDE 10 MEQ 10 MEQ/100 ML BAG IV SCH ×2 (10:11→11:23)
[2019-04-11] MEDS: diphenhydrAMINE 25 MG CAP PO SCH (10:11)
[2019-04-11] MEDS: PANTOPRAZOLE 40 MG INJ IV SCH (10:12)
[2019-04-11] MEDS ORDERED: hydrALAZINE 20 MG/1 ML INJ IV PRN (10:13)
--- NOTE | 2019-04-11 11:17 | Progress Note ---
Assessment and Plan / Sepsis patient presented with elevated white count, tachycardia and tachypnea and UTI cont abx for now, follow urine and blood cx /Acute GI (gastrointestinal hemorrhage) GI consulted, plan for EGD tomorrow monitor H/H, transfused 2 units PRBC /Severe malnutrition Encourage increased protein intake, dietary supplementation as tolerated. nutrition consult / Acute blood loss anemia due to acute GI bleed, s/p 2 units PRBC transfusion / Hyponatremia due to dehydration IV fluid resuscitation therapy, repeat BMP in a.m. /Hypokalemia, replete / DVT prophylaxis SCD to bilateral lower extremities while in bed, hold anticoagulation for now due to GI bleed. disposition: monitor at [facility]. d/c pending on clinical improvement and EGD findings Subjective Date of service: 04/11/19 Interval history: Patient seen and examined s/p blood transfusion denies any active bleeding today denies any abdominal pain Objective - Constitutional Vitals: Vital Signs - 12hr 04/10/19 04/10/19 04/11/19 23:20 23:40 00:00 Temperature Pulse Rate 95 H 93 H 88 Respiratory 22 21 18 Rate Blood Pressure 158/78 155/76 145/62 Blood Pressure [Right] O2 Sat by Pulse Oximetry 04/11/19 04/11/19 04/11/19 00:20 00:40 01:00 Temperature Pulse Rate 89 89 91 H Respiratory 18 22 23 Rate Blood Pressure 145/62 145/62 164/79 Blood Pressure [Right] O2 Sat by Pulse Oximetry 04/11/19 04/11/19 04/11/19 01:20 01:40 02:00 Temperature Pulse Rate 87 85 88 Respiratory 18 20 20 Rate Blood Pressure 164/79 164/79 143/64 Blood Pressure [Right] O2 Sat by Pulse Oximetry 04/11/19 04/11/19 04/11/19 02:20 02:40 03:00 Temperature Pulse Rate 83 91 H 88 Respiratory 26 H 23 21 Rate Blood Pressure 143/64 143/64 148/74 Blood Pressure [Right] O2 Sat by Pulse Oximetry 04/11/19 04/11/19 04/11/19 03:20 03:40 04:00 Temperature Pulse Rate 86 88 86 Respiratory 20 21 19 Rate Blood Pressure 148/74 148/74 136/68 Blood Pressure [Right] O2 Sat by Pulse Oximetry 04/11/19 04/11/19 04/11/19 04:20 04:40 05:00 Temperature Pulse Rate 87 85 85 Respiratory 15 18 23 Rate Blood Pressure 136/68 136/68 126/75 Blood Pressure [Right] O2 Sat by Pulse Oximetry 04/11/19 04/11/19 04/11/19 05:20 05:40 06:00 Temperature Pulse Rate 83 84 86 Respiratory 23 22 14 Rate Blood Pressure 126/75 126/75 136/70 Blood Pressure [Right] O2 Sat by Pulse Oximetry 04/11/19 04/11/19 04/11/19 06:20 07:42 10:10 Temperature 98.2 F Pulse Rate 88 87 88 Respiratory 18 22 Rate Blood Pressure 136/70 173/84 Blood Pressure 162/80 [Right] O2 Sat by Pulse 100 Oximetry General appearance: Present: no acute distress, cachectic, other - EENT Eyes: PERRL, EOM intact ENT: hearing intact, clear oral mucosa Ears: bilateral: normal - Neck Neck: supple, normal ROM - Respiratory Respiratory effort: normal Respiratory: bilateral: CTA - Cardiovascular Rhythm: regular Heart Sounds: Present: S1 & S2. Absent: gallop, rub Extremities: pulses intact, No edema, normal color, Full ROM - Gastrointestinal General gastrointestinal: Present: soft, non-tender, non-distended, normal bowel sounds - Integumentary Integumentary: clear, warm, dry, pale, decreased turgor - Musculoskeletal Musculoskeletal: 1, strength equal bilaterally - Neurologic Neurologic: moves all extremities - Psychiatric Psychiatric: memory intact, appropriate mood/affect, intact judgment & insight - Labs CBC & Chem 7: 04/12/19 04:53 04/12/19 04:53 Labs: Abnormal lab results 04/10/19 04/10/19 04/10/19 Range/Units 09:58 09:58 15:36 WBC 21.8 H (4.5-11.0) K/mm3 RBC 2.69 L (3.65-5.03) M/mm3 Hgb 6.9 L (10.1-14.3) gm/dl Hct 21.3 L (30.3-42.9) % MCH 26 L (28-32) pg RDW 26.6 H (13.2-15.2) % Seg Neuts % (Manual) 90.0 H (40.0-70.0) % Lymphocytes % (Manual) 1.0 L (13.4-35.0) % Monocytes % (Manual) (0.0-7.3) % Seg Neutrophils # Man 19.6 H (1.8-7.7) K/mm3 Lymphocytes # (Manual) 0.2 L (1.2-5.4) K/mm3 Monocytes # (Manual) (0.0-0.8) K/mm3 Basophils # (Manual) 0.2 H (0.0-0.1) K/mm3 Sodium (137-145) mmol/L Potassium (3.6-5.0) mmol/L Carbon Dioxide (22-30) mmol/L Creatinine (0.7-1.2) mg/dL Calcium (8.4-10.2) mg/dL Albumin (3.9-5) g/dL Ur Specific [place] 1.035 H (1.003-1.030) Urine WBC (Auto) 55.0 H (0.0-6.0) /HPF U Epithel Cells (Auto) 31.0 H (0-13.0) /HPF Crossmatch See Detail 04/11/19 04/11/19 Range/Units 04:14 04:14 WBC 17.5 H (4.5-11.0) K/mm3 RBC 3.53 L (3.65-5.03) M/mm3 Hgb (10.1-14.3) gm/dl Hct 29.4 L D (30.3-42.9) % MCH (28-32) pg RDW 21.7 H (13.2-15.2) % Seg Neuts % (Manual) 82.0 H (40.0-70.0) % Lymphocytes % (Manual) 9.0 L (13.4-35.0) % Monocytes % (Manual) 9.0 H (0.0-7.3) % Seg Neutrophils # Man 14.4 H (1.8-7.7) K/mm3 Lymphocytes # (Manual) (1.2-5.4) K/mm3 Monocytes # (Manual) 1.6 H (0.0-0.8) K/mm3 Basophils # (Manual) (0.0-0.1) K/mm3 Sodium 135 L (137-145) mmol/L Potassium 3.3 L (3.6-5.0) mmol/L Carbon Dioxide 20 L (22-30) mmol/L Creatinine 0.6 L (0.7-1.2) mg/dL Calcium 8.3 L (8.4-10.2) mg/dL Albumin 2.7 L (3.9-5) g/dL Ur Specific [place] (1.003-1.030) Urine WBC (Auto) (0.0-6.0) /HPF U Epithel Cells (Auto) (0-13.0) /HPF Crossmatch
[2019-04-11] MEDS: CETIRIZINE 10 MG TAB PO SCH (11:23)
[2019-04-11] MEDS ORDERED: ACETAMINOPHEN 325 MG TAB PO ONE (19:45)
[2019-04-11] MEDS ORDERED: ACETAMINOPHEN 325 MG TAB ONE (19:48)
[2019-04-12] MEDS: PANTOPRAZOLE 40 MG INJ IV SCH ×3 (00:43→21:37)
[2019-04-12] MEDS: metroNIDAZOLE/NS 500 MG/100 ML 500 MG/100 ML BAG IV SCH ×4 (00:43→23:24)
[2019-04-12] MEDS: LOSARTAN 50 MG TAB PO SCH ×3 (00:44→21:36)
[2019-04-12] MEDS ORDERED: MORPHINE 2 MG/1 ML INJ IV ONE (01:15)
[2019-04-12] MEDS: ACYCLOVIR 800 MG TAB PO SCH ×3 (01:32→21:38)
[2019-04-12] MEDS: MONTELUKAST 10 MG TAB PO SCH ×2 (01:32→21:38)
[2019-04-12 05:20] LABS: Hematocrit 31.9 % (30.3-42.9); Hemoglobin 10.7 gm/dl (10.1-14.3); Mean Corpuscular HGB Conc 34 % (30-34); Mean Corpuscular Volume 83 fl (79-97); Platelet Count 317 K/mm3 (140-440); Red Blood Count 3.83 M/mm3 (3.65-5.03)
[2019-04-12 05:45] LABS: BUN/Creatinine Ratio 18; Blood Urea Nitrogen 11 mg/dL (7-17); Calcium 8.7 mg/dL (8.4-10.2); Hemolysis Index 8
[2019-04-12] MEDS: LEVOTHYROXINE 25 MCG TAB PO SCH (07:36)
[2019-04-12 08:37] LABS: Basophils % (Manual) 0 % (0.0-1.8); Monocytes % (Manual) 0 % (0.0-7.3); Total Cells Counted 100
[2019-04-12 08:38] LABS: Anisocytosis Few; Hypochromasia Rare; Ovalocytes Rare; Platelet Estimate Consistent w Auto
[2019-04-12] MEDS ORDERED: WATER FOR IRRIG STERILE 1,000 ML BOTTLE ONE (09:00)
[2019-04-12] MEDS ORDERED: SODIUM CHLORIDE 0.9% 1000 ML 1,000 ML IV SCH (09:00)
[2019-04-12] MEDS ORDERED: WATER FOR IRRIG STERILE 250 ML BOTTLE IR ONE (09:00)
--- NOTE | 2019-04-12 09:23 | Anesthesia Consultation ---
Anesthesia Consult and Med Hx Date of service: 04/12/19 - Airway Anesthetic Teeth Evaluation: Edentulous ROM Head & Neck: Inadequate Mental/Hyoid Distance: Inadequate Mallampati Class: Class III Intubation Access Assessment: Difficult - Pre-Operative Health Status ASA Pre-Surgery Classification: ASA4 Proposed Anesthetic Plan: MAC - Pulmonary Hx Smoking: Yes (past smoker) Hx Asthma: Yes Hx Respiratory Symptoms: No SOB: No COPD: No Home Oxygen Therapy: No Hx Pneumonia: No Hx Sleep Apnea: No - Cardiovascular System Hx Hypertension: Yes Hx Coronary Artery Disease: No Hx Heart Attack/AMI: No Hx Angina: No Hx Percutaneous Transluminal Coronary Angioplasty (PTCA): No Hx Cardia Arrhythmia: Yes Hx Pacemaker: No Hx Internal Defibrillator: No Hx Valvular Heart Disease: No Hx Heart Murmur: No Hx Peripheral Vascular Disease: No - Central Nervous System Hx Neuromuscular Disorder: No Hx Seizures: No CVA: Yes (right side weakness) Hx Back Pain: No Hx Psychiatric Problems: No - Gastrointestinal Hx Ulcer: No Hx Gastroesophageal Reflux Disease: No - Endocrine Hx Renal Disease: No Hx End Stage Renal Disease: No Hx Cirrhosis: No Hx Liver Disease: No Hx Insulin Dependent Diabetes: No Hx Non-Insulin Dependent Diabetes: Yes Hx Thyroid Disease: Yes Hx Hypothyroidism: Yes Hx Hyperthyroidism: No - Hematic Hx Anemia: Yes Hx Sickle Cell Disease: No - Other Systems Hx Alcohol Use: Yes (occ) Hx Substance Use: No Hx Cancer: Yes ([place] 2010) Hx Obesity: No
--- NOTE | 2019-04-12 09:28 | Anesthesia Day of Surgery ---
Anesthesia Day of Surgery - Day of Surgery Patient Examined: Yes Patient H&P Reviewed: Yes Patient is NPO: Yes Beta Blockers: No
[2019-04-12] MEDS ORDERED: PROPOFOL 200 MG/20 ML VIAL IV ONE (09:44)
[2019-04-12] MEDS ORDERED: FLUTICASONE PROPIONATE INHALATION SCH (10:00)
[2019-04-12] MEDS ORDERED: LIDOCAINE MPF (2%) 20 MG/1 ML VIAL 5 ML ONE (10:00)
[2019-04-12] MEDS: FLUTICASONE PROPIONATE NASAL SPRAY 16 GM NS SCH (10:02)
--- NOTE | 2019-04-12 10:27 | Post Operative Note ---
Pre-op diagnosis: GI Bleed Post-op diagnosis: other (Billroth II, AVMs) Findings: 1. Billroth II anatomy; both limbs cannulated 2. AVM x 3 in new-bulb; treated with APC 3. AVM x 2 in stomach (antrum, fundus); treated with APC 4. Small HH Procedure: EGD with APC Anesthesia: MAC Surgeon: MYKEL DALY Estimated blood loss: minimal Pathology: none Specimen disposition: other (N/A) Condition: stable Disposition: floor (Recs: 1. OK to resume heparin at 4PM today; hold eliquis x 24 hours. 2. Protonix and MVI daily. 3. Ideally needs capsule endoscopy; will be difficult with B II anatomy.)
[2019-04-12] MEDS: CETIRIZINE 10 MG TAB PO SCH (10:30)
[2019-04-12] MEDS: allopurinoL 300 MG TAB PO SCH (10:30)
[2019-04-12] MEDS: diphenhydrAMINE 25 MG CAP PO SCH (10:30)
--- NOTE | 2019-04-12 10:40 | Operative Report ---
PROCEDURE PERFORMED: Esophagogastroduodenoscopy with argon plasma cautery treatment of vascular malformations. PREOPERATIVE DIAGNOSIS: Gastrointestinal bleeding and history of AVMs. POSTOPERATIVE DIAGNOSES: Gastrointestinal bleeding and history of AVMs, Billroth II anatomy, and hiatal hernia. ENDOSCOPIST: Rene Majano MD INSTRUMENT: Olympus video endoscope. MEDICATIONS: MAC anesthesia by [facility]. COMPLICATIONS: No apparent complications. ESTIMATED BLOOD LOSS: Minimal. SPECIMENS: None. IMPLANTS: None. ASSISTANTS: None. CONDITION AT COMPLETION: Stable. TECHNIQUE: The patient was informed of the risks and benefits of the procedure. She signed the informed consent to proceed. She was placed in the left lateral decubitus position. The above sedative medications were given. Her vital signs remained stable throughout the procedure. The endoscope was advanced from the mouth into the small bowel under direct visualization. At that point, the bowel was insufflated and the endoscope was slowly withdrawn. FINDINGS: 1. Apparent Billroth II anatomy. A. Both the afferent and efferent limbs were cannulated with difficulty using the pediatric colonoscope, to approximately 15 cm through each limb. B. The cannulation was difficult due to the patient's altered anatomy. 2. Arteriovenous malformation x 3 in the yuridia-bulb of the duodenum; all 3 were treated with argon plasma cautery. 3. 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 4. Small hiatal hernia. 5. Otherwise, normal esophagus. RECOMMENDATIONS: 1. Okay to resume heparin at 4:00 p.m. today; I would hold Eliquis for another 24 hours. 2. Protonix and multivitamin daily; given the history of Billroth II, she may poorly absorb oral iron and may require IV iron. 3. The patient ideally needs a capsule endoscopy, but this will be difficult with her Billroth II anatomy and will need a delivery device. 4. Okay to resume her mechanical soft diet. JOB# [id number] MORGAN/CARRINGTON
[2019-04-12] MEDS ORDERED: POTASSIUM CHLORIDE ER 20 MEQ TAB PO SCH (11:00)
--- NOTE | 2019-04-12 13:50 | Post Anesthesia Evaluation ---
- Post Anesthesia Evaluation Patient Participated: Yes Airway Patent: Yes Stable Respiratory Function: Yes Nausea/Vomiting: No Temp > 96.8F: Yes Pain Manageable: Yes Adequeate Hydration: Yes Anesthesia Complications: No Block Receding Appropriately: Not Applicable Patient on Ventilator: No
--- NOTE | 2019-04-12 17:24 | Progress Note ---
Assessment and Plan / Sepsis patient presented with elevated white count, tachycardia and tachypnea and UTI cont abx for now, follow urine and blood cx - pending /Acute GI (gastrointestinal hemorrhage) with h/o AVM GI consulted, plan for EGD today monitor H/H, transfused 2 units PRBC /Severe malnutrition Encouraged increased protein intake, dietary supplementation as tolerated. nutrition consult / Acute blood loss anemia due to acute GI bleed, s/p 2 units PRBC transfusion following admission / Hyponatremia due to dehydration IV fluid resuscitation therapy, repeat BMP in a.m. /Hypokalemia, replete / DVT prophylaxis SCD to bilateral lower extremities while in bed, hold anticoagulation for now due to GI bleed. Disposition: monitor at [facility]. d/c pending on clinical improvement and EGD findings. cont to monitor h/h Subjective Date of service: 04/12/19 Interval history: Patient seen and examined denies any active bleeding today denies any abdominal pain Plan for bedside EGD today Objective - Exam Narrative Exam: General appearance: Present: no acute distress, cachectic, other - EENT Eyes: PERRL, EOM intact ENT: hearing intact, clear oral mucosa Ears: bilateral: normal - Neck Neck: supple, normal ROM - Respiratory Respiratory effort: normal Respiratory: bilateral: CTA - Cardiovascular Rhythm: regular Heart Sounds: Present: S1 & S2. Absent: gallop, rub Extremities: pulses intact, No edema, normal color, Full ROM - Gastrointestinal General gastrointestinal: Present: soft, non-tender, non-distended, normal bowel sounds - Integumentary Integumentary: clear, warm, dry, pale, decreased turgor - Musculoskeletal Musculoskeletal: 1, strength equal bilaterally - Neurologic Neurologic: moves all extremities - Psychiatric Psychiatric: memory intact, appropriate mood/affect, intact judgment & insight - Constitutional Vitals: Vital Signs - 12hr 04/12/19 04/12/19 04/12/19 05:30 05:40 05:50 Temperature Pulse Rate 91 H 94 H 93 H Pulse Rate [ From Monitor] Respiratory 26 H 22 24 Rate Blood Pressure 141/74 141/74 141/74 O2 Sat by Pulse 93 93 94 Oximetry 04/12/19 04/12/19 04/12/19 06:00 06:10 06:20 Temperature Pulse Rate 92 H 92 H 95 H Pulse Rate [ From Monitor] Respiratory 21 20 21 Rate Blood Pressure 147/79 147/79 147/79 O2 Sat by Pulse 95 91 84 Oximetry 04/12/19 04/12/19 04/12/19 06:30 06:40 06:50 Temperature Pulse Rate 98 H 99 H 98 H Pulse Rate [ From Monitor] Respiratory 25 H 31 H 28 H Rate Blood Pressure 147/79 147/79 147/79 O2 Sat by Pulse 92 94 94 Oximetry 04/12/19 04/12/19 04/12/19 07:00 07:10 07:20 Temperature Pulse Rate 100 H 100 H 96 H Pulse Rate [ From Monitor] Respiratory 27 H 26 H 22 Rate Blood Pressure 146/85 146/85 146/85 O2 Sat by Pulse 95 91 95 Oximetry 04/12/19 04/12/19 04/12/19 07:30 07:40 07:50 Temperature Pulse Rate 96 H 100 H 96 H Pulse Rate [ From Monitor] Respiratory 26 H 24 32 H Rate Blood Pressure 146/85 146/85 146/85 O2 Sat by Pulse 93 95 92 Oximetry 04/12/19 04/12/19 04/12/19 08:00 08:10 08:20 Temperature 98.2 F Pulse Rate 95 H 92 H 98 H Pulse Rate [ 93 H From Monitor] Respiratory 25 H 24 22 Rate Blood Pressure 156/80 156/80 156/80 O2 Sat by Pulse 93 94 97 Oximetry 04/12/19 04/12/19 04/12/19 08:30 08:35 08:40 Temperature Pulse Rate 91 H 90 Pulse Rate [ From Monitor] Respiratory 22 25 H Rate Blood Pressure 156/80 156/80 O2 Sat by Pulse 95 95 94 Oximetry 04/12/19 04/12/19 04/12/19 08:50 09:00 09:10 Temperature Pulse Rate 93 H 97 H 92 H Pulse Rate [ From Monitor] Respiratory 30 H 24 32 H Rate Blood Pressure 156/80 155/83 155/83 O2 Sat by Pulse 95 95 76 L Oximetry 04/12/19 04/12/19 04/12/19 09:20 09:26 09:30 Temperature 98.2 F Pulse Rate 100 H 99 H 103 H Pulse Rate [ From Monitor] Respiratory 21 20 26 H Rate Blood Pressure 155/83 155/83 155/83 O2 Sat by Pulse 93 93 94 Oximetry 04/12/19 04/12/19 04/12/19 09:40 09:50 10:00 Temperature Pulse Rate 100 H 100 H 100 H Pulse Rate [ From Monitor] Respiratory 24 25 H 30 H Rate Blood Pressure 155/83 155/83 103/72 O2 Sat by Pulse 94 98 95 Oximetry 04/12/19 04/12/19 04/12/19 10:10 10:13 10:20 Temperature Pulse Rate 101 H 94 H 95 H Pulse Rate [ From Monitor] Respiratory 35 H 20 27 H Rate Blood Pressure 171/94 154/99 114/67 O2 Sat by Pulse 91 95 91 Oximetry 04/12/19 04/12/19 04/12/19 10:25 10:30 10:40 Temperature Pulse Rate 94 H 93 H 95 H Pulse Rate [ From Monitor] Respiratory 20 22 26 H Rate Blood Pressure 117/72 119/70 105/63 O2 Sat by Pulse 96 96 97 Oximetry 04/12/19 04/12/19 04/12/19 10:50 11:00 11:10 Temperature Pulse Rate 93 H 91 H 88 Pulse Rate [ From Monitor] Respiratory 23 22 22 Rate Blood Pressure 116/65 117/70 120/64 O2 Sat by Pulse 97 98 97 Oximetry 04/12/19 04/12/19 04/12/19 11:20 11:30 11:40 Temperature Pulse Rate 88 90 92 H Pulse Rate [ From Monitor] Respiratory 25 H 20 20 Rate Blood Pressure 135/75 140/73 133/76 O2 Sat by Pulse 97 98 98 Oximetry 04/12/19 04/12/19 04/12/19 11:50 12:00 12:10 Temperature Pulse Rate 93 H 94 H 95 H Pulse Rate [ 97 H From Monitor] Respiratory 22 23 22 Rate Blood Pressure 131/74 140/79 127/78 O2 Sat by Pulse 99 98 97 Oximetry 04/12/19 04/12/19 04/12/19 12:20 12:30 12:40 Temperature Pulse Rate 94 H 98 H 94 H Pulse Rate [ From Monitor] Respiratory 24 26 H 24 Rate Blood Pressure 145/79 132/80 157/76 O2 Sat by Pulse 97 97 98 Oximetry 04/12/19 04/12/19 04/12/19 12:50 13:00 13:10 Temperature Pulse Rate 97 H 98 H 99 H Pulse Rate [ From Monitor] Respiratory 23 16 22 Rate Blood Pressure 122/62 151/87 157/82 O2 Sat by Pulse 96 96 87 Oximetry 04/12/19 04/12/19 04/12/19 13:20 13:30 13:40 Temperature Pulse Rate 101 H 102 H 99 H Pulse Rate [ From Monitor] Respiratory 23 22 22 Rate Blood Pressure 119/64 90/52 97/51 O2 Sat by Pulse 98 92 94 Oximetry 04/12/19 04/12/19 04/12/19 13:50 14:00 14:10 Temperature Pulse Rate 98 H 101 H 97 H Pulse Rate [ From Monitor] Respiratory 23 23 24 Rate Blood Pressure 99/53 77/49 100/49 O2 Sat by Pulse 95 94 95 Oximetry - Labs CBC & Chem 7: 04/12/19 04:53 04/12/19 04:53 Labs: Abnormal lab results 04/12/19 04/12/19 Range/Units 04:53 04:53 WBC 14.3 H (4.5-11.0) K/mm3 RDW 22.0 H (13.2-15.2) % Seg Neuts % (Manual) 95.0 H (40.0-70.0) % Lymphocytes % (Manual) 3.0 L (13.4-35.0) % Seg Neutrophils # Man 13.6 H (1.8-7.7) K/mm3 Lymphocytes # (Manual) 0.4 L (1.2-5.4) K/mm3 Sodium 135 L (137-145) mmol/L Potassium 3.3 L (3.6-5.0) mmol/L Carbon Dioxide 20 L (22-30) mmol/L Creatinine 0.6 L (0.7-1.2) mg/dL
[2019-04-12] MEDS ORDERED: traMADol 50 MG TAB PO ONE (19:58)
[2019-04-13] MEDS: LEVOTHYROXINE 25 MCG TAB PO SCH (05:19)
[2019-04-13] MEDS: metroNIDAZOLE/NS 500 MG/100 ML 500 MG/100 ML BAG IV SCH ×2 (08:27→16:59)
[2019-04-13] MEDS: diphenhydrAMINE 25 MG CAP PO SCH (09:42)
[2019-04-13] MEDS: ACYCLOVIR 800 MG TAB PO SCH ×2 (09:42→23:13)
[2019-04-13] MEDS: PANTOPRAZOLE 40 MG TAB PO SCH (09:43)
[2019-04-13] MEDS: CETIRIZINE 10 MG TAB PO SCH (09:43)
[2019-04-13] MEDS: FLUTICASONE PROPIONATE NASAL SPRAY 16 GM NS SCH (09:43)
[2019-04-13] MEDS: allopurinoL 300 MG TAB PO SCH (09:43)
[2019-04-13] MEDS: LOSARTAN 50 MG TAB PO SCH ×2 (09:43→22:33)
[2019-04-13] MEDS ORDERED: APIXABAN 2.5 MG TAB PO SCH (10:00)
[2019-04-13 10:55] LABS: Hematocrit 32.5 % (30.3-42.9); Hemoglobin 10.9 gm/dl (10.1-14.3)
[2019-04-13 11:19] LABS: BUN/Creatinine Ratio 10; Blood Urea Nitrogen 7 mg/dL (7-17); Calcium 9.3 mg/dL (8.4-10.2); Hemolysis Index 3
--- NOTE | 2019-04-13 11:59 | Gastroenterology Progress Note ---
Assessment and Plan 1.GI bleed 2.acute on chronic anemia 3.RUE DVT 4.H/o head/neck cancer (s/p removal/chemo/xrt/PEG w/ removal)-CT chest 04/04/19 with findings c/w metastatic process vs lymphoma -plt WNL, INR 1.53 -CTA abd/pelvis negative for active bleeding -H/H 10.9/32.5- stable s/p blood transfusion -continue to monitor H/H and transfuse as needed -s/p EGD/colonoscopy 04/06/19 that showed two medium sized non-bleeding AVMs in the duodenal bulb and internal hemorrhoids -etiology-GI bleed likely 2/2 AVMs; anemia likely multifactorial with AVMs + m etastatic process -s/p repeat EGD yesterday 04/12/19 showed Billroth II anatomy?, small hiatal hernia, and AVMs in duodenal bulb and stomach treated with APC -clinically, patient is stable w/o active signs of bleeding overnight or this am. -okay to resume Eliquis today-recommend monitoring patient overnight for rebleeding; monitor and hold for active signs of bleeding -ideally patient needs a capsule endoscopy as outpatient but will be difficult given anatomy -continue PPI and supportive care -consider IR consult for further recommendations for DVT if unable to tolerate anticoagulation -further recommendations to follow Subjective Date of service: 04/13/19 Principal diagnosis: GI bleed Interval history: No acute distress or active signs of bleeding overnight/this am. Objective - Constitutional Vitals: Temp Pulse Resp BP Pulse Ox 97.4 F L 97 H 22 141/75 94 04/13/19 08:00 04/13/19 09:43 04/13/19 08:00 04/13/19 09:43 04/13/19 08:33 General appearance: no acute distress - EENT Eyes: PERRL, EOM intact ENT: hearing intact - Respiratory Respiratory effort: normal - Cardiovascular Rhythm: regular - Gastrointestinal General gastrointestinal: Present: soft, non-tender, non-distended, normal bowel sounds - Neurologic Neurological: alert and oriented x3 - Labs CBC & Chem 7: 04/13/19 10:35 04/13/19 10:35 Labs: Laboratory Results - last 24 hr 04/13/19 04/13/19 10:35 10:35 Hgb 10.9 Hct 32.5 Sodium 131 L Potassium 3.6 Chloride 95.0 L Carbon Dioxide 21 L Anion Gap 19 BUN 7 Creatinine 0.7 Estimated GFR > 60 BUN/Creatinine Ratio 10 Glucose 108 H Calcium 9.3
--- NOTE | 2019-04-13 16:30 | Progress Note ---
Assessment and Plan / Sepsis patient presented with elevated white count, tachycardia and tachypnea and UTI cont abx for now, urine growing E. coli and blood cx negative /Acute GI (gastrointestinal hemorrhage) with h/o AVM GI consulted, monitor H/H, transfused 2 units PRBC -s/p repeat EGD yesterday 04/12/19 showed Billroth II anatomy?, small hiatal hernia, and AVMs in duodenal bulb and stomach treated with APC - cont PPI, watch for rebleed /Severe malnutrition Encouraged increased protein intake, dietary supplementation as tolerated. nutrition consult / Acute blood loss anemia due to acute GI bleed, s/p 2 units PRBC transfusion following admission monitor h/h / Hyponatremia due to dehydration IV fluid resuscitation therapy, repeat BMP in a.m. /Hypokalemia, replete /Acute RUE DVT, dx during previous admission - start eliquis and monitor for any acute bleeding / DVT prophylaxis SCD to bilateral lower extremities while in bed, eliquis Disposition: transfer to tele. d/c pending on clinical improvement and if h/h s table Subjective Date of service: 04/13/19 Principal diagnosis: GI bleed Interval history: Patient seen and examined denies any active bleeding today denies any abdominal pain tolerating diet Objective - Exam Narrative Exam: General appearance: Present: no acute distress, cachectic, other - EENT Eyes: PERRL, EOM intact ENT: hearing intact, clear oral mucosa Ears: bilateral: normal - Neck Neck: supple, normal ROM - Respiratory Respiratory effort: normal Respiratory: bilateral: CTA - Cardiovascular Rhythm: regular Heart Sounds: Present: S1 & S2. Absent: gallop, rub Extremities: pulses intact, No edema, normal color, Full ROM - Gastrointestinal General gastrointestinal: Present: soft, non-tender, non-distended, normal bowel sounds - Integumentary Integumentary: clear, warm, dry, pale, decreased turgor - Musculoskeletal Musculoskeletal: 1, strength equal bilaterally - Neurologic Neurologic: moves all extremities - Psychiatric Psychiatric: memory intact, appropriate mood/affect, intact judgment & insight - Constitutional Vitals: Vital Signs - 12hr 04/13/19 04/13/19 04/13/19 04:30 04:40 04:50 Temperature Pulse Rate 86 88 86 Pulse Rate [ From Monitor] Respiratory 21 19 24 Rate Blood Pressure 114/71 114/71 114/71 O2 Sat by Pulse 97 98 99 Oximetry 04/13/19 04/13/19 04/13/19 05:00 05:10 05:20 Temperature Pulse Rate 89 93 H 87 Pulse Rate [ From Monitor] Respiratory 17 22 21 Rate Blood Pressure 147/83 147/83 147/83 O2 Sat by Pulse 98 98 96 Oximetry 04/13/19 04/13/19 04/13/19 05:30 05:40 05:50 Temperature Pulse Rate 89 85 83 Pulse Rate [ From Monitor] Respiratory 21 22 21 Rate Blood Pressure 147/83 147/83 147/83 O2 Sat by Pulse 99 98 99 Oximetry 04/13/19 04/13/19 04/13/19 06:00 06:10 06:20 Temperature Pulse Rate 87 87 91 H Pulse Rate [ From Monitor] Respiratory 19 22 21 Rate Blood Pressure 147/83 147/83 147/83 O2 Sat by Pulse 96 98 99 Oximetry 04/13/19 04/13/19 04/13/19 06:30 06:40 06:50 Temperature Pulse Rate 91 H 91 H 88 Pulse Rate [ From Monitor] Respiratory 16 15 21 Rate Blood Pressure 147/83 147/83 147/83 O2 Sat by Pulse 97 97 99 Oximetry 04/13/19 04/13/19 04/13/19 07:00 07:10 07:20 Temperature Pulse Rate 91 H 84 86 Pulse Rate [ From Monitor] Respiratory 22 20 22 Rate Blood Pressure 146/81 146/81 146/81 O2 Sat by Pulse 98 98 99 Oximetry 04/13/19 04/13/19 04/13/19 07:30 07:40 07:50 Temperature Pulse Rate 95 H 92 H 88 Pulse Rate [ From Monitor] Respiratory 25 H 21 20 Rate Blood Pressure 146/81 146/81 146/81 O2 Sat by Pulse 98 97 96 Oximetry 04/13/19 04/13/19 04/13/19 08:00 08:33 09:00 Temperature 97.4 F L Pulse Rate 90 97 H Pulse Rate [ 91 H From Monitor] Respiratory 18 17 Rate Blood Pressure 147/76 141/75 O2 Sat by Pulse 99 94 98 Oximetry 04/13/19 04/13/19 04/13/19 09:43 10:00 11:00 Temperature Pulse Rate 97 H 94 H 93 H Pulse Rate [ From Monitor] Respiratory 16 25 H Rate Blood Pressure 141/75 141/75 127/55 O2 Sat by Pulse 96 94 Oximetry 04/13/19 04/13/19 12:00 13:00 Temperature 98.0 F Pulse Rate 94 H 97 H Pulse Rate [ 99 H From Monitor] Respiratory 29 H 16 Rate Blood Pressure 127/52 109/63 O2 Sat by Pulse 93 96 Oximetry - Labs CBC & Chem 7: 04/14/19 04:06 04/13/19 10:35 Labs: Abnormal lab results 04/13/19 Range/Units 10:35 Sodium 131 L (137-145) mmol/L Chloride 95.0 L (98-107) mmol/L Carbon Dioxide 21 L (22-30) mmol/L Glucose 108 H (65-100) mg/dL
[2019-04-13] MEDS ORDERED: oxyCODONE 5 MG TAB PO ONE (22:00)
[2019-04-13] MEDS ORDERED: levoFLOXacin 750 MG TAB PO SCH (22:00)
[2019-04-13] MEDS: MONTELUKAST 10 MG TAB PO SCH (22:34)
[2019-04-13] MEDS: APIXABAN 5 MG TAB PO SCH (22:34)
[2019-04-14 05:29] LABS: Hematocrit 30.4 % (30.3-42.9); Hemoglobin 10.2 gm/dl (10.1-14.3)
--- NOTE | 2019-04-14 11:07 | Gastroenterology Progress Note ---
Assessment and Plan 1.GI bleed 2.acute on chronic anemia 3.RUE DVT 4.H/o head/neck cancer (s/p removal/chemo/xrt/PEG w/ removal)-CT chest 04/04/19 with findings c/w metastatic process vs lymphoma -plt WNL, INR 1.53 -CTA abd/pelvis negative for active bleeding -H/H 10.2/30.4- stable s/p blood transfusion -continue to monitor H/H and transfuse as needed -s/p EGD/colonoscopy 04/06/19 that showed two medium sized non-bleeding AVMs in the duodenal bulb and internal hemorrhoids -etiology-GI bleed likely 2/2 AVMs; anemia likely multifactorial with AVMs + m etastatic process -s/p repeat EGD 04/12/19 showed Billroth II anatomy?, small hiatal hernia, and AVMs in duodenal bulb and stomach treated with APC -clinically, patient is stable w/o active signs of bleeding overnight or this am. -continue Eliquis; monitor and hold for active signs of bleeding -ideally patient needs a capsule endoscopy as outpatient but will be difficult given anatomy -continue PPI -resume daily iron supplement -continue supportive care -if re-bleeds recommend stat bleeding scan ( vs consider transfer to tertiary center for balloon enteroscopy, however given likely mets disease would need goals of care discussion), along with IR consult for further recommendations for tx of DVT if unable to tolerate anticoagulation -if no further signs of bleeding today, okay to be d/c per GI standpoint on PPI with f/u in clinic in ~1-2 weeks Subjective Date of service: 04/14/19 Principal diagnosis: GI bleed Interval history: No acute distress or active signs of bleeding overnight/this am. Objective - Constitutional Vitals: Temp Pulse Resp BP Pulse Ox 97.9 F 96 H 16 104/62 99 04/14/19 09:03 04/14/19 09:03 04/14/19 09:03 04/14/19 09:03 04/14/19 09:03 General appearance: no acute distress, cachectic - EENT Eyes: PERRL, EOM intact ENT: hearing intact - Respiratory Respiratory effort: normal - Cardiovascular Rhythm: regular - Gastrointestinal General gastrointestinal: Present: soft, non-tender, non-distended, normal bowel sounds - Neurologic Neurological: alert and oriented x3 - Labs CBC & Chem 7: 04/14/19 04:06 04/13/19 10:35 Labs: Laboratory Results - last 24 hr 04/13/19 04/13/19 04/13/19 10:35 15:24 20:38 Hgb Hct Sodium 131 L Potassium 3.6 Chloride 95.0 L Carbon Dioxide 21 L Anion Gap 19 BUN 7 Creatinine 0.7 Estimated GFR > 60 BUN/Creatinine Ratio 10 Glucose 108 H POC Glucose 126 H 119 H Calcium 9.3 04/14/19 04:06 Hgb 10.2 Hct 30.4 Sodium Potassium Chloride Carbon Dioxide Anion Gap BUN Creatinine Estimated GFR BUN/Creatinine Ratio Glucose POC Glucose Calcium
[2019-04-14] MEDS: LOSARTAN 50 MG TAB PO SCH (11:50)
[2019-04-14] MEDS: diphenhydrAMINE 25 MG CAP PO SCH (11:52)
[2019-04-14] MEDS: APIXABAN 5 MG TAB PO SCH (11:52)
[2019-04-14] MEDS: PANTOPRAZOLE 40 MG TAB PO SCH (11:52)
[2019-04-14] MEDS: allopurinoL 300 MG TAB PO SCH (11:52)
[2019-04-14] MEDS: CETIRIZINE 10 MG TAB PO SCH (11:52)
[2019-04-14 11:59] VITALS: BP 103/48
[2019-04-14] MEDS: ACYCLOVIR 800 MG TAB PO SCH (12:21)
[2019-04-14] MEDS: FLUTICASONE PROPIONATE NASAL SPRAY 16 GM NS SCH (12:22)
--- NOTE | 2019-04-14 15:10 | Discharge Summary ---
Providers - Providers Date of Admission: 04/10/19 15:10 Date of discharge: 04/14/19 Attending physician: PATRICK LEBLANC 04/10/19 15:09 Consult to Physician [CONS] Routine Comment: CLD TO ADV OF CONSULT 1522 Consulting Provider: CARLOS CA Physician Instructions: Reason For Exam: gi bleeding [facility] Condition: Stable Pertinent studies: Abdomen/pelvis CT Hospital course: Discharge Diagnosis and Mx: / Sepsis patient presented with elevated white count, tachycardia and tachypnea and UTI urine growing E. coli and blood cx negative, treated with abx /Acute GI (gastrointestinal hemorrhage) with h/o AVM GI consulted, monitor H/H, transfused 2 units PRBC -s/p repeat EGD on 04/12/19 showed Billroth II anatomy?, small hiatal hernia, and AVMs in duodenal bulb and stomach treated with APC - cont PPI, f/u outpt with GI /Severe malnutrition Encouraged increased protein intake, dietary supplementation as tolerated. nutrition consult / Acute blood loss anemia due to acute GI bleed, s/p 2 units PRBC transfusion following admission monitor h/h / Hyponatremia due to dehydration s/p IV fluid resuscitation therapy /Hypokalemia, replete /Acute RUE DVT, dx during previous admission - start eliquis and monitor for any acute bleeding / DVT prophylaxis SCD to bilateral lower extremities while in bed, eliquis Disposition: [id number] HOME UNDER HOME [facility] Time spent for discharge: 34 minutes Core Measure Documentation - Palliative Care Palliative Care/ Comfort Measures: Not Applicable - Core Measures Any of the following diagnoses?: none Exam - Physical Exam Narrative exam: General appearance: Present: no acute distress, cachectic, other - EENT Eyes: PERRL, EOM intact ENT: hearing intact, clear oral mucosa Ears: bilateral: normal - Neck Neck: supple, normal ROM - Respiratory Respiratory effort: normal Respiratory: bilateral: CTA - Cardiovascular Rhythm: regular Heart Sounds: Present: S1 & S2. Absent: gallop, rub Extremities: pulses intact, No edema, normal color, Full ROM - Gastrointestinal General gastrointestinal: Present: soft, non-tender, non-distended, normal bowel sounds - Integumentary Integumentary: clear, warm, dry, pale, decreased turgor - Musculoskeletal Musculoskeletal: 1, strength equal bilaterally - Neurologic Neurologic: moves all extremities - Psychiatric Psychiatric: memory intact, appropriate mood/affect, intact judgment & insight - Constitutional Vitals: Temp Pulse Resp BP Pulse Ox 98.2 F 100 H 16 103/48 93 04/14/19 11:36 04/14/19 11:36 04/14/19 11:36 04/14/19 11:36 04/14/19 11:36 Plan Activity: advance as tolerated Weight Bearing Status: Weight Bear as Tolerated Diet: advance as tolerated (nutrition supplement ensure 1 can BID) Special Instructions: physical therapy Follow up with: DEMARCUS MEJIA MD [Primary Care Provider] - 3-5 Days MYKEL DALY MD [Staff Physician] - 7 Days
== END 2019-04-14 20:10 | disposition home health service (06) | DRG 871 ==
LOC: ED 08:51 → IMCU 15:10 → 4A 04-13 14:46
PROVIDERS: ADMIT Internal Medicine; ATTEND Internal Medicine
PROC: 30233N1 Transfusion of Nonautologous Red Blood Cells into Peripheral Vein, Percutaneous Approach (ICD-10-PCS; principal; 2019-04-10)
PROC: 0D598ZZ Destruction of Duodenum, Via Natural or Artificial Opening Endoscopic (ICD-10-PCS; 2019-04-12)
PROC: 0D578ZZ Destruction of Stomach, Pylorus, Via Natural or Artificial Opening Endoscopic (ICD-10-PCS; 2019-04-12)
PROC: 0D568ZZ Destruction of Stomach, Via Natural or Artificial Opening Endoscopic (ICD-10-PCS; 2019-04-12)
DX: A41.9 Sepsis, unspecified organism (principal); E43 Unspecified severe protein-calorie malnutrition; K55.21 Angiodysplasia of colon with hemorrhage; D62 Acute posthemorrhagic anemia; N39.0 Urinary tract infection, site not specified; B96.20 Unspecified Escherichia coli [E. coli] as the cause of diseases classified elsewhere; E87.1 Hypo-osmolality and hyponatremia; E86.0 Dehydration; I10 Essential (primary) hypertension; J45.909 Unspecified asthma, uncomplicated; I49.9 Cardiac arrhythmia, unspecified; G81.91 Hemiplegia, unspecified affecting right dominant side; E11.9 Type 2 diabetes mellitus without complications; E03.9 Hypothyroidism, unspecified; F17.210 Nicotine dependence, cigarettes, uncomplicated; K44.9 Diaphragmatic hernia without obstruction or gangrene; E87.6 Hypokalemia; Z86.73 Personal history of transient ischemic attack (TIA), and cerebral infarction without residual deficits; Z85.89 Personal history of malignant neoplasm of other organs and systems; Z79.899 Other long term (current) drug therapy; Z82.49 Family history of ischemic heart disease and other diseases of the circulatory system; Z68.1 Body mass index [BMI] 19.9 or less, adult; Z83.3 Family history of diabetes mellitus; Z85.038 Personal history of other malignant neoplasm of large intestine; Z86.718 Personal history of other venous thrombosis and embolism; Z71.6 Tobacco abuse counseling; Z71.3 Dietary counseling and surveillance; Z90.3 Acquired absence of stomach [part of]
CPT/HCPCS: 36415; 74177; 80048; 80053; 80076; 81001; 82140; 82271; 82962; 85007; 85014; 85018; 85025; 85610; 85730; 86850; 86900; 86901; 86920; 87040; 87076; 87086; 87186; 94760; 99406; G0378; C9113; J1956; J2270; J2543; J2704; J3480; J7030; J7040; P9040; Q9967

== ENCOUNTER 2019-11-17 00:17 | Emergency (ER) | payer MEDICAID ==
[2019-11-17 02:45] VITALS: BP 136/81
--- NOTE | 2019-11-17 04:44 | Emergency Department Report ---
ED General Adult HPI - General Chief complaint: Medical Clearance Stated complaint: FEEDING TUBE NOT WORKING Time Seen by Provider: 11/17/19 04:39 Source: patient Mode of arrival: Ambulatory Limitations: No Limitations - History of Present Illness Initial comments: 59-year-old female presents to ED because feeding tube is clogged. Unable to do feeding last night. -: Last night Location: abdomen Improves with: none Worsens with: none Associated Symptoms: denies other symptoms Treatments Prior to Arrival: other (Attempted to flush with Pepsi) - Related Data Home Medications Medication Instructions Recorded Confirmed Last Taken Combivent Respimat 1 spray INHALATION Q6H 04/04/19 11/11/19 04/09/19 Fluticasone Propionate 2 spray INHALATION DAILY 04/04/19 11/11/19 04/09/19 Levothyroxine 25 mcg PO DAILY 04/04/19 11/11/19 04/09/19 Montelukast 10 mg PO QPM 04/04/19 11/11/19 04/09/19 Previous Rx's Medication Instructions Recorded Last Taken Type Pantoprazole [Protonix TAB] 40 mg PO QDAY #30 tablet 04/07/19 04/09/19 Rx levETIRAcetam [Keppra TAB] 1,000 mg PO BID #60 tab 11/15/19 Unknown Rx predniSONE [Deltasone] 50 mg PO DAILY #14 tablet 11/15/19 Unknown Rx Allergies Allergy/AdvReac Type Severity Reaction Status Date / Time No Known Allergies Allergy Verified 04/04/19 01:28 ED Review of Systems ROS: Stated complaint: FEEDING TUBE NOT WORKING Other details as noted in HPI Comment: All other systems reviewed and negative Gastrointestinal: as per HPI. denies: abdominal pain ED Past Medical Hx - Past Medical History Previous Medical History?: Yes Hx Hypertension: Yes Hx CVA: Yes Hx Heart Attack/AMI: No Hx Diabetes: Yes Hx Liver Disease: No Hx Renal Disease: No Hx Sickle Cell Disease: No Hx Seizures: No Hx Asthma: Yes Hx COPD: No Hx HIV: No Additional medical history: Gout - Surgical History Past Surgical History?: No Hx Pacemaker: No Hx Internal Defibrillator: No Additional Surgical History: Oral Surgery, hx of feeding tube - Social History Smoking Status: Former Smoker Substance Use Type: None - Medications Home Medications: Home Medications Medication Instructions Recorded Confirmed Last Taken Type Combivent Respimat 1 spray INHALATION Q6H 04/04/19 11/11/19 04/09/19 History Fluticasone Propionate 2 spray INHALATION DAILY 04/04/19 11/11/19 04/09/19 History Levothyroxine 25 mcg PO DAILY 04/04/19 11/11/19 04/09/19 History Montelukast 10 mg PO QPM 04/04/19 11/11/19 04/09/19 History Pantoprazole [Protonix TAB] 40 mg PO QDAY #30 tablet 04/07/19 11/11/19 04/09/19 Rx levETIRAcetam [Keppra TAB] 1,000 mg PO BID #60 tab 11/15/19 Unknown Rx predniSONE [Deltasone] 50 mg PO DAILY #14 tablet 11/15/19 Unknown Rx ED Physical Exam - General Limitations: No Limitations General appearance: alert, in no apparent distress - Head Head exam: Present: atraumatic, normocephalic - Eye Eye exam: Present: normal appearance, EOMI - ENT ENT exam: Present: mucous membranes moist - Neck Neck exam: Present: normal inspection - Respiratory Respiratory exam: Present: normal lung sounds bilaterally. Absent: respiratory distress - Cardiovascular Cardiovascular Exam: Present: regular rate, normal rhythm - GI/Abdominal GI/Abdominal exam: Present: soft, other (PEG tube in place). Absent: distended, tenderness - Extremities Exam Extremities exam: Present: normal inspection - Neurological Exam Neurological exam: Present: alert, oriented X3 - Psychiatric Psychiatric exam: Present: normal affect, normal mood - Skin Skin exam: Present: warm, dry, intact, normal color ED Course Vital Signs 11/17/19 01:22 Temperature 98.1 F Pulse Rate 98 H Respiratory 18 Rate Blood Pressure 136/81 O2 Sat by Pulse 100 Oximetry ED Medical Decision Making - Medical Decision Making 59-year-old female presents to the ED for clogged feeding tube. PEG tube flushed by RN and is now working. Outpatient follow-up advised. Return precautions given. Patient reports her home health nurse will be visiting her later today. Critical care attestation.: If time is entered above; I have spent that time in minutes in the direct care of this critically ill patient, excluding procedure time. ED Disposition Clinical Impression: Clogged feeding tube Disposition: TO HOME OR SELFCARE Is pt being admited?: No Condition: Stable Instructions: How to Use and Care for Your PEG Tube (ED), Tube Feeding (ED) Referrals: [facility] [Provider Group] - as needed Time of Disposition: 04:40
== END 2019-11-17 05:12 | disposition home or self-care (01) ==
LOC: ED 00:17
DX: T85.9XXA Unspecified complication of internal prosthetic device, implant and graft, initial encounter (principal); I10 Essential (primary) hypertension; E11.9 Type 2 diabetes mellitus without complications; J45.909 Unspecified asthma, uncomplicated; M10.9 Gout, unspecified; Z87.891 Personal history of nicotine dependence; Z86.73 Personal history of transient ischemic attack (TIA), and cerebral infarction without residual deficits; Z79.899 Other long term (current) drug therapy; X58.XXXA Exposure to other specified factors, initial encounter
CPT/HCPCS: 99281